=== PATIENT | female | born 1955 | race Asian ===

== ENCOUNTER 2022-03-02 16:35 | Emergency (ER) | payer OTHER ==
[~2022-03-02] VITALS: Ht 157.5 cm; Wt 59.0 kg
[2022-03-02] MEDS ORDERED: TETANUS/DIPHTHERIA TOX ADULT 0.5 ML SYR IM ONE (17:00)
[2022-03-02] MEDS ORDERED: TRAMADOL HCL 50 MG TAB PO NR (17:00)
[2022-03-02] MEDS ORDERED: TRAMADOL HCL 50 MG TAB ONE (17:11)
[2022-03-02] MEDS ORDERED: HYDROCODON-ACE1 EA11 PO ×2 (18:21→19:19)
[2022-03-02] MEDS ORDERED: AMOX TR-K CLV1 EAC2 PO (18:21)
[2022-03-02] MEDS ORDERED: HYDROCODONE/APAP 5MG-325MG TAB PO ONE (18:30)
[2022-03-02] MEDS ORDERED: HYDROCODONE/APAP 5MG-325MG TAB ONE (18:37)
[2022-03-02] MEDS ORDERED: AUGMENTIN 500-1 EACH PO (19:19)
== END 2022-03-02 18:54 | disposition home or self-care (01) ==
LOC: ER 16:41
DX: S01.511A Laceration without foreign body of lip, initial encounter (principal); S42.211A Unspecified displaced fracture of surgical neck of right humerus, initial encounter for closed fracture; I10 Essential (primary) hypertension; E11.9 Type 2 diabetes mellitus without complications; W18.39XA Other fall on same level, initial encounter; Y93.K1 Activity, walking an animal; Y99.8 Other external cause status
CPT/HCPCS: 70450; 70486; 90471; 90714; 99284

== ENCOUNTER → 2024-11-14 | Outpatient (REF) | payer MEDICARE ==
[~2024-11-14] MED LIST: AMOX TR-K CLV1 EAC2 PO; AUGMENTIN 500-1 EACH PO; HYDROCODON-ACE1 EA11 PO
== END ==
LOC: RAD 12:02
PROVIDERS: ATTEND Family Medicine
DX: M18.9 Osteoarthritis of first carpometacarpal joint, unspecified (principal)